=== PATIENT | female | born 1975 | race Caucasian/White ===

== ENCOUNTER 2017-08-02 13:00 | Emergency (ER) | END 2017-08-02 17:19 | disposition home or self-care (01) ==

== ENCOUNTER 2018-01-09 17:05 | Emergency (ER) | END 2018-01-09 18:31 | disposition home or self-care (01) ==

== ENCOUNTER 2018-03-29 13:47 | Emergency (ER) | payer OTHER ==
[~2018-03-29] VITALS: Ht 165.1 cm; Wt 61.4 kg
[~2018-03-29 13:47] MED LIST: ACET325T33 PO; MECL-77 PO
[2018-03-29 13:49] VITALS: BP 137/89; PULSE 92; RESP 18; Ht 165.1 cm; Wt 61.4 kg
[2018-03-29] MEDS ORDERED: ONDANSETRON (ODT) 4 MG TAB ODT STA (14:05)
[2018-03-29] MEDS ORDERED: SOD CHLORIDE 0.9% 1,000 ML IV STA (14:07)
[2018-03-29] MEDS ORDERED: METOCLOPRAMIDE 10 MG INJ IV STA (14:07)
[2018-03-29] MEDS: HYDROCODONE/APAP (5/325) TAB PO ONE ×2 (14:16→14:20)
[2018-03-29] MEDS ORDERED: KETOROLAC 30 MG INJ IV STA (14:33)
[2018-03-29] MEDS ORDERED: ONDA8TAB14 PO (15:42)
[2018-03-29] MEDS ORDERED: CEPH-443 PO (15:42)
[2018-03-29] MEDS ORDERED: FIORICET PO (15:42)
--- NOTE | 2018-03-29 15:46 | ERD ---
ER Documentation Chief Complaint Chief Complaint R39 from homeHEADACHE X1 DAY. NO DEFICIT, NO HX HPI 42-year-old female presents with a one day history of headache. She points to the top of her head as the area of headache. She denies any visual changes she denies any vomiting although she has nausea. She denies any deficits, weakness. She denies any recent illnesses, fevers, cough, shortness of breath or chest pain. She denies urinary complaints. She denies . ROS All systems reviewed and are negative except as per history of present illness. Medications Home Meds Active Scripts Cephalexin* (Keflex*) 500 Mg Capsule, 500 MG PO QID for 5 Days, CAP Prov:JAIRO AVILA MD 03/29/18 Acetamin/Butalbital/Caffeine* (Fioricet*) [id number] Tab, 1 TAB PO Q6H PRN for PAIN, #15 TAB Prov:JAIRO AVILA MD 03/29/18 Ondansetron (Ondansetron Odt) 8 Mg Tab.rapdis, 8 MG PO Q6H PRN for NAUSEA AND/OR VOMITING, #5 TAB Prov:JAIRO AVILA MD 03/29/18 Acetaminophen* (Tylenol*) 325 Mg Tablet, 2 TAB PO Q6 PRN for PAIN AND OR ELEVATED TEMP, #30 TAB Prov:JOE ANTHONY PA-C 01/09/18 Meclizine Hcl* (Meclizine Hcl*) 25 Mg Tablet, 25 MG PO Q8H PRN for DIZZINESS for 7 Days, TAB Prov:ZAY LY PA-C 08/02/17 Allergies Allergies: Coded Allergies: No Known Allergy (Unverified , 08/02/17) PMhx/Soc Medical and Surgical Hx: pt denies Medical Hx History of Surgery: Yes (appy ) Anesthesia Reaction: No Hx Neurological Disorder: No Hx Respiratory Disorders: No Hx Cardiac Disorders: No Hx Psychiatric Problems: No Hx Miscellaneous Medical Probl: No Hx Alcohol Use: No Hx Substance Use: No Hx Tobacco Use: No Smoking Status: Never smoker FmHx Family History: No diabetes, No coronary disease, No other Physical Exam Vitals Vital Signs Date Temp Pulse Resp B/P (MAP) Pulse Ox O2 O2 Flow FiO2 Time Delivery Rate 1/1/19 98.3 92 18 137/89 98 13:49 (105) Physical Exam Const: No acute distress Head: Atraumatic Eyes: Normal Conjunctiva. Eyes Judy and extraocular movements intact. ENT: Normal External Ears, Nose and Mouth. Neck: Full range of motion. No meningismus. Resp: Clear to auscultation bilaterally Cardio: Regular rate and rhythm, no murmurs Abd: Soft, non tender, non distended. Normal bowel sounds Skin: No petechiae or rashes Back: No midline or flank tenderness Ext: No cyanosis, or edema Neur: Awake and alert cranial nerves II through XII grossly intact. Negative Romberg and no pronator drift. Psych: Normal Mood and Affect Result Diagram: 03/29/18 1418 03/29/18 1418 Results 24 hrs Laboratory Tests Test 03/29/18 14:10 03/29/18 14:11 03/29/18 14:18 Bedside Urine pH (LAB) 7.0 Bedside Urine Protein (LAB) Negative Bedside Urine Glucose (UA) Negative Bedside Urine Ketones (LAB) Negative Bedside Urine Blood 2+ Bedside Urine Nitrite (LAB) Negative Bedside Urine Leukocyte Esterase (L 1+ POC Beta HCG, Qualitative NEGATIVE White Blood Count 15.1 10^3/ul Red Blood Count 4.89 10^6/ul Hemoglobin 14.5 g/dl Hematocrit 42.6 % Mean Corpuscular Volume 87.1 fl Mean Corpuscular Hemoglobin 29.7 pg Mean Corpuscular Hemoglobin Concent 34.0 g/dl Red Cell Distribution Width 13.1 % Platelet Count 346 10^3/UL Mean Platelet Volume 10.2 fl Immature Granulocytes % 0.700 % Neutrophils % 76.2 % Lymphocytes % 17.0 % Monocytes % 5.1 % Eosinophils % 0.7 % Basophils % 0.3 % Nucleated Red Blood Cells % 0.0 /100WBC Immature Granulocytes # 0.100 10^3/ul Neutrophils # 11.6 10^3/ul Lymphocytes # 2.6 10^3/ul Monocytes # 0.8 10^3/ul Eosinophils # 0.1 10^3/ul Basophils # 0.0 10^3/ul Nucleated Red Blood Cells # 0.0 10^3/ul Prothrombin Time 11.8 Sec Prothrombin Time Ratio 0.9 INR International Normalized Ratio 0.86 Activated Partial Thromboplast Time 35.8 Sec Sodium Level 143 mmol/L Potassium Level 3.9 mmol/L Chloride Level 105 mmol/L Carbon Dioxide Level 27 mmol/L Anion Gap 11 Blood Urea Nitrogen 7 mg/dl Creatinine 0.35 mg/dl Est Glomerular Filtrat Rate mL/min > 60 mL/min Glucose Level 101 mg/dl Calcium Level 9.7 mg/dl Current Medications Medications Dose Sig/Ruben Start Time Status Last (Trade) Ordered Route PRN Stop Time Admin Dose Reason Admin Ondansetron 8 mg ONCE STAT 03/29/18 DC HCl (Zofran ODT 14:05 03/29/18 Odt) 14:08 1 tab ONCE ONCE 03/29/18 DC Acetaminophen PO 14:30 03/29/18 / 14:31 Hydrocodone Bitart ([place] (5/325)) Sodium 1,000 ml @ Q1H STAT 03/29/18 DC 03/29/18 Chloride 1,000 mls/hr IV 14:07 03/29/18 14:15 15:06 10 mg ONCE STAT 03/29/18 DC 03/29/18 Metoclopramid IV 14:07 03/29/18 14:15 e HCl 14:09 (Reglan) Ketorolac 30 mg ONCE STAT 03/29/18 DC 03/29/18 Tromethamine IV 14:33 03/29/18 14:39 (Toradol) 14:34 Cephalexin 500 mg ONCE ONCE 03/29/18 DC 03/29/18 (Keflex) PO 16:00 03/29/18 15:43 16:01 Procedures/MDM She presents with headache of uncertain etiology for last day. She denies previous headaches of similar headaches. CT brain read as normal by radiologist. Patient was given 1 L normal saline IV, Toradol 30 mill grams IV, Reglan 10 mg IV. CBC shows mild leukocytosis of 15 and basic metabolic panel otherwise normal. Urine shows hemoglobin and leukocyte esterase. Patient was given Keflex 500 mg by mouth. Patient will be treated for UTI. Patient headache completely resolved after observation and treatment and felt much better. Current signs or symptoms do not suggest subarachnoid, meningitis, ma ss-effect, emergent cause of headache. She may have new onset migraine type headache. Correlation with UTI is uncertain. She will treated with Fioricet, Keflex, instructions for rest, fluids, primary care doctor follow-up, return precautions. The patient was stable with no new complaints during the ER course. Clinically, there is no current evidence to suggest meningitis, sepsis, acute abdomen, pneumonia, stroke, acute coronary syndrome, pulmonary embolism, aortic dissection or any other emergent condition appearing to require further evaluation or hospitalization. Patient counseled regarding my diagnostic impression and care plan. Prior to discharge all questions answered. Pt agrees w ith treatment plan and understands strict return precautions. Pt is instructed to follow up with primary care provider within 24-48 hours. Precautionary instructions provided including instructions to return to the ER if not improving or for any worsening or changing symptoms or concerns. Departure Diagnosis: Primary Impression: UTI (urinary tract infection) Urinary tract infection type: acute cystitis Hematuria presence: without hematuria Qualified Codes: N30.00 - Acute cystitis without hematuria Additional Impression: Headache Headache type: unspecified Headache chronicity pattern: unspecified pattern Intractability: not intractable Qualified Codes: R51 - Headache Condition: Stable Patient Instructions: Understanding Urinary Tract Infections (UTIs), Self-Care for Headaches Additional Instructions: Urine shows infection and we will treat for this. CT read as normal. Drink plenty fluids and rest at home. Recheck for new or worsening symptoms with primary care doctor. JAIRO AVILA MD Mar 29, 2018 15:45
[2018-03-29] MEDS ORDERED: CEPHALEXIN 500 MG CAP PO ONE (16:00)
== END 2018-03-29 16:20 | disposition home or self-care (01) ==
LOC: FTE 13:47
DX: N30.00 Acute cystitis without hematuria (principal)
CPT/HCPCS: 36415; 70450; 80048; 81003; 81025; 85025; 85610; 85730; 96361; 96374; 96375; J1885; J2765; J7030; Z7502; Z7610